=== PATIENT | female | born 1975 | race Asian ===

== ENCOUNTER 2018-07-07 17:18 | Emergency (ER) | payer MEDICAID ==
--- NOTE | 2018-07-07 17:22 | Emergency Department Record ---
History of Present Illness - General Chief Complaint: Shortness of breath Stated Complaint: SOB, Chest pressure Time Seen by Provider: 07/07/18 17:20 Source: Patient, Family Mode of Arrival: Ambulatory Limitations: No limitations - History of Present Illness Initial Comments: 42 yo female presents with chest discomfort and shortness of breath that started yesterday. She states the chest discomfort feels like a tightness. She states she does have a sensation of shortness of breath like she is not able to take a deep breath. No pain with deep breathing. The symptoms seem to come and go. She noted return this afternoon. She has some left arm ache and feels fatigue as well. No history of CAD. She is a smoker. She is adopted with no knowledge of family history. No PCP. At times today she had to take breaks because she felt dizzy as well. MD Complaint: Chest pain, Shortness of breath -: Days(s) (1) Radiation: Left arm Severity: Moderate Quality: Aching, Other (Pressure, tightness) Consistency: Intermittent Improves With: Nothing Worsens With: Inspiration Known History Of: Other (Smoker) Context: Other (Onset at work) Associated Symptoms: Chest pain, Other Treatments Prior to Arrival: None - Related Data Home Oxygen Therapy: No Home Medications Medication Instructions Recorded Confirmed Last Taken No Home Med [NO HOME MEDS] 07/07/18 07/07/18 Unknown Omeprazole Magnesium [Prilosec Otc] 20 mg PO DAILY PRN 07/07/18 07/07/18 Unknown Allergies Allergy/AdvReac Type Severity Reaction Status Date / Time No Known Allergies Allergy none Verified 07/07/18 17:34 Review of Systems Constitutional: Reports: Malaise. Denies: Chills, Fever Eyes: Denies: Eye discharge, Eye pain, Photophobia, Vision change ENT: Denies: Congestion, Throat pain Respiratory: Reports: Dyspnea. Denies: Cough, Hemoptysis, Stridor, Wheezes Cardiovascular: Reports: Chest pain, Dyspnea on exertion. Denies: Edema, Palpitations, Syncope Endocrine: Reports: Fatigue. Denies: Polydipsia, Polyuria Gastrointestinal: Denies: Abdominal pain, Diarrhea, Nausea, Vomiting Genitourinary: Denies: Dysuria, Urgency Musculoskeletal: Denies: Arthralgia, Back pain, Myalgia, Neck pain Skin: Denies: Bruising, Change in color, Rash Neurological: Reports: Vertigo (dizzy feeling at times with this). Denies: Headache Psychiatric: Denies: Anxiety Hematological/Lymphatic: Denies: Blood Clots, Easy bleeding, Easy bruising, Swollen glands Past Medical History - SOCIAL HISTORY Smoking Status: Current every day smoker Drug Use: None - RESPIRATORY Hx Respiratory Disorders: Yes Hx Bronchitis: Yes - CARDIOVASCULAR Hx Cardio Disorders: No - NEURO Hx Neuro Disorders: No - GI Hx GI Disorders: No - Hx Genitourinary Disorders: No - ENDOCRINE Hx Endocrine Disorders: No - MUSCULOSKELETAL Hx Musculoskeletal Disorders: No - PSYCH Hx Psych Problems: No - HEMATOLOGY/ONCOLOGY Hx Hematology/Oncology Disorders: No Physical Exam - General General Appearance: Alert, Oriented x3, Cooperative, No acute distress Limitations: No limitations - Head Head exam: Atraumatic, Normal inspection - Eye Eye exam: Normal appearance, PERRL. negative: Conjunctival injection, Scleral icterus - ENT ENT exam: Normal exam, Mucous membranes moist Ear exam: Normal external inspection Nasal Exam: Normal inspection Mouth exam: Normal external inspection - Neck Neck exam: Normal inspection - Respiratory Respiratory exam: Normal lung sounds bilaterally. negative: Accessory muscle use, Decreased breath sounds, Respiratory distress, Rhonchi, Stridor, Wheezes - Cardiovascular Cardiovascular Exam: Regular rate, Normal rhythm, Normal heart sounds. negative : Tachycardia Peripheral Pulses: 2+: Radial (R), Radial (L) - GI/Abdominal GI/Abdominal exam: Soft. negative: Tenderness - Rectal Rectal exam: Deferred - exam: Deferred - Extremities Extremities exam: Normal inspection. negative: Calf tenderness, Pedal edema, Tenderness - Back Back exam: Denies: CVA tenderness (R), CVA tenderness (L) - Neurological Neurological exam: Alert, Normal gait, Oriented X3 - Psychiatric Psychiatric exam: Normal affect, Normal mood - Skin Skin exam: Dry, Intact, Normal color, Warm Course - Reevaluation(s) Reevaluation #1: EKG #1: 17:22 Rate: 70 Rhythm: sinus [place]: normal Intervals: RBBB with QRS 136 ST segments: new findings CW RBBB Prior: 08/07/17 new RBBB 07/07/18 17:27 No acute changes on the CBC 07/07/18 17:54 07/07/18 18:07 The D-Dimer is negative at < 0.19 07/07/18 18:08 No acute changes on the CMP 07/07/18 18:[address] Anamaria whitmore to discuss the case. He recommends transfer to [facility] [place] further testing and work up He recommends admit through IM The CXR was reviewed. DW Dr Burks of . She accepts the patient for transfer. Medical Decision Making - Lab Data Result diagrams: 07/07/18 17:35 07/07/18 17:35 Disposition Disposition: Transfer Clinical Impression: Chest pain Qualifiers: Chest pain type: unspecified Qualified Code(s): R07.9 - Chest pain, unspecified Disposition: Acute Care Hospital Transfer Transfer To: [facility] Reason For Transfer: Chest Pain Accepting Physician: Vitaliy Time Discussed w/Accepting Physician: 18:28 Condition: (2) Stable Forms: Patient Portal Access Time of Disposition: 18:28 Quality - Quality Measures Quality Measures: N/A - Blood Pressure Screening Does Patient Have Any of the Following: No Blood Pressure Classification: Pre-Hypertensive BP Reading Systolic Measurement: 142 Diastolic Measurement: 84 Screening for High Blood Pressure: < Pre-Hypertensive BP, F/U Documented > [ [id number]] Pre-Hypertensive Follow-up Interventions: Referral to alternative/primary care provider.
[2018-07-07] MEDS ORDERED: ASPIRIN 81 MG CHEWABLE TABLET PO ONE (17:35)
[2018-07-07 17:51] LABS: BASO % 0.2 % (0-6); EOS % 2.2 % (0-6); GRAN % 57.2 % (47-80); HEMOGLOBIN 12.6 gm/dl (11.6-16.0); LYMPH % 34.1 % (16-45); MEAN CELL VOLUME 88.8 fl (81-97); MEAN CORPUSCULAR HEMOGLOBIN 29.4 pg (27-33); MEAN CORPUSCULAR HGB CONC 33.2 g/dl (32-36); MEAN PLATELET VOLUME 9.6 fl (7.4-10.4); MONO % 6.3 % (0-9); PLATELET COUNT 306 K/uL (130-400); RED BLOOD COUNT 4.28 M/uL (3.80-5.40); RED CELL DISTRIBUTION WIDTH 12.8 % (11.5-14.5); WHITE BLOOD COUNT W/O DIFF 5.4 K/uL (4.2-12.2)
[2018-07-07 17:58] LABS: PARTIAL THROMBOPLASTIN TIME 26.8 SECONDS (24.5-39.1); PROTHROMBIN TIME (PATIENT) 10.4 SECONDS (9.5-12.1)
[2018-07-07 18:02] LABS: BLOOD UREA NITROGEN 11 mg/dL (6-20); CREATININE 0.5 mg/dL (0.5-0.9); EST GLOMERULAR FILTRATION RATE > 60 mL/min
[2018-07-07 18:03] LABS: TOTAL PROTEIN 6.7 g/dL (6.6-8.7)
[2018-07-07 18:05] LABS: GLUCOSE,RANDOM 117 mg/dL (74-109)
[2018-07-07 18:07] LABS: ALB/GLOB RATIO 2.4 (1.1-1.8); ALBUMIN 4.7 g/dL (4.0-5.0); ALT/SGPT 12 U/L (<33); AST/SGOT 13 U/L (10.0-35.0)
[2018-07-07 18:08] LABS: ALKALINE PHOSPHATASE 61 U/L (35-104)
--- NOTE | 2018-07-11 08:45 | RADIOLOGY REPORT ---
EXAM: CHEST HISTORY: CHEST PRESSURE. TECHNIQUE: Two views of the chest were obtained. Comparison: 01/12/18. FINDINGS: The heart is not enlarged and there is no mediastinal mass. There is no acute infiltrate or vascular congestion. IMPRESSION: NO ACUTE CARDIAC OR PULMONARY ABNORMALITY. JOB NUMBER: [id number] MTDD
== END 2018-07-07 19:40 | disposition short-term general hospital (02) ==
LOC: ER 17:18
DX: R07.89 Other chest pain (principal); R06.02 Shortness of breath; R53.83 Other fatigue; F17.210 Nicotine dependence, cigarettes, uncomplicated
CPT/HCPCS: 71046; 80053; 84484; 84703; 85025; 85379; 85610; 85730; 93005; 93010; 99285